=== PATIENT | female | born 1965 | race Caucasian/White ===

== ENCOUNTER 2018-03-22 09:46 | Outpatient (CLI) | payer MEDICAID ==
[~2018-03-22 09:46] MED LIST: ACET-2119 PO; ASPI1TAB2 PO; IRON150C5 PO; LAMO25TA4 PO; MEDR2.5T PO; SERT50TA PO; ZOLP10TA5 PO
== END 2018-03-22 23:59 | disposition home or self-care (01) ==
LOC: RAD 09:46
PROVIDERS: ATTEND Nurse Practitioner Family
DX: R56.9 Unspecified convulsions (principal); I10 Essential (primary) hypertension; Z87.891 Personal history of nicotine dependence; Z88.0 Allergy status to penicillin; Z88.2 Allergy status to sulfonamides
CPT/HCPCS: 95816

== ENCOUNTER 2018-05-27 11:41 | Emergency (ER) | payer MEDICAID ==
[~2018-05-27] VITALS: Ht 167.6 cm; Wt 63.6 kg
[2018-05-27 12:45] LABS: BASOPHILS % (AUTO) 0.7 % (0-1); EOSINOPHILS % (AUTO) 0.6 % (0-6); HEMOGLOBIN 14.8 g/dl (12.0-16.0); LYMPHOCYTES # (AUTO) 1.6 X10'3 (1.1-4.8); LYMPHOCYTES % (AUTO) 31.6 % (21-51); MEAN CORPUSCULAR HEMOGLOBIN 31.3 PG (27.0-31.0); MEAN CORPUSCULAR HGB CONC 33.6 g/dL (33.0-36.5); MEAN PLATELET VOLUME 7.8 FL (7.4-10.4); MONOCYTES # (AUTO) 0.4 X10'3 (0-0.9); MONOCYTES % (AUTO) 8.6 % (2-12); NEUTROPHILS % (AUTO) 58.5 % (42-75); PLATELET COUNT 254 X10'3 (140-440); RED BLOOD COUNT 4.73 X10'6 (4.20-5.60); RED CELL DISTRIBUTION WIDTH 13.1 % (11.5-14.5); WHITE BLOOD COUNT 5.1 X10'3 (4.5-11.0)
[2018-05-27] MEDS ORDERED: TETanus/Pertussis (Acell)/Diphther VAC/PF (Tdap-Adult) 0.5ml syringe IM ONE (12:55)
[2018-05-27] MEDS ORDERED: proCHLORperazine 10mg tablet PO ONE (12:55)
[2018-05-27] MEDS ORDERED: acetaminophen 325mg tablet PO ONE (12:55)
[2018-05-27] MEDS ORDERED: ketorolac trometh inj. 60 MG/2 ML VIAL IM ONE (12:55)
[2018-05-27] MEDS ORDERED: ziprasidone 20mg capsule PO ONE (12:55)
[2018-05-27] MEDS ORDERED: diphenhydrAMINE 25mg capsule PO ONE (12:55)
[2018-05-27 12:59] LABS: ALANINE AMINOTRANSFERASE 15 U/L (12-78); ALBUMIN 4.3 G/DL (3.4-5.0); ALBUMIN/GLOBULIN RATIO 1.2 (1.1-1.5); ALKALINE PHOSPHATASE 35 IU/L (46-116); ANION GAP 8 (8-16); ASPARTATE AMINO TRANSFERASE 12 U/L (10-37); BILIRUBIN,TOTAL 0.4 MG/DL (0.1-1.0); BLOOD UREA NITROGEN 11 MG/DL (7-18); BUN/CREATININE RATIO 15.9 (6.6-38.0); CALCIUM 9.4 MG/DL (8.5-10.1); CHLORIDE 105 MMOL/L (99-107); CREATININE 0.69 MG/DL (0.40-0.90); GLUCOSE 83 MG/DL (70-104); POTASSIUM 3.9 MMOL/L (3.5-5.1); SODIUM 144 MMOL/L (135-145); TOTAL CARBON DIOXIDE 30.6 MMOL/L (24-32); eGFR 89 ML/MIN
[2018-05-27 13:08] LABS: URINE AMPHETAMINE SCREEN NEGATIVE (Neg); URINE BARBITUATE SCREEN NEGATIVE (Neg); URINE BENZODIAZEPINES SCREEN POSITIVE (Neg); URINE CANNABINOID SCREEN POSITIVE (Neg); URINE COCAINE SCREEN NEGATIVE (Neg); URINE METHADONE SCREEN NEGATIVE (Neg); URINE OPIATE SCREEN NEGATIVE (Neg); URINE PHENCYCLIDINE SCREEN NEGATIVE (Neg)
[2018-05-27 13:12] LABS: ETHANOL < 0.010 GM/DL (0.0-0.010)
[2018-05-27] MEDS ORDERED: EST1T PO (13:31)
[2018-05-27] MEDS ORDERED: acetaminophen 325mg tablet PO PRN (13:40)
--- NOTE | 2018-05-27 13:43 | NUR ---
PT WENT TO CT VIA WHEELCHAIR AND NOW BACK IN BED EATING LUNCH.
[2018-05-27] MEDS ORDERED: aspirin/acetaminophen/caffeine tablet PO PRN (13:45)
[2018-05-27 15:58] LABS: CLARITY,URINE CLEAR (Clear); COLOR,URINE STRAW (Yellow); GLUCOSE, URINE NEGATIVE (Neg); KETONES,URINE NEGATIVE (Neg); LEUKOCYTE ESTERASE ,URINE NEGATIVE (Neg); NITRITES, URINE NEGATIVE (Neg); OCCULT BLOOD,URINE NEGATIVE (Neg); PROTEIN,URINE NEGATIVE (Neg); UROBILINOGEN,URINE 0.2 E.U/dL (0.2-1.0)
[2018-05-27 16:02] LABS: UA COLLECTION TYPE CLN CATCH MIDSTREAM
--- NOTE | 2018-05-27 16:19 | NUR ---
Patient awake and alert. Pt c/o feeling overwhelmed. Patient has chronic MARINELLI which is now 2/10 after medication. Pt is awaiting disability. Pt's ex lives with her and she believes he is doing drugs. Patient had agreement that he could live with her as long as he is drug free and goes to rehab. Patient has not gone to rehab yet. Patient tearful. Patient states she broke and did something she shouldn't have. Patient states she is not suicidal and won't try doing something again. Continue to monitor.
--- NOTE | 2018-05-27 20:34 | NUR ---
On asssessment the proposal manager writer notice patient was curled up in a position sleeping. When asked how patient was feeling, pt began to cry. Pt stated she was sad because she was supposed to have tea with her granchilden today. Pt states she has six granchildren. One , not sure of the time frame. Pt also stated she couldn't take it any more leaving with her . "He was supposed to be clean, but when he yells at her like he did, he is usually using."Pt states she couldn't take it anymore and that is when she decided to cut her wrists. Pt was pleasant during 1:1 therapeutic assesment. Pt c/o of headache 04/25. This proposal manager writer administered Excedrin migraine. Pt's mood matches her affect. Pt sleeps most of the time. Addendum: 05/27/18 at 2043 by CLARICE pt was given aspirin/acetaminophin/caffeine 2 tabs.
--- NOTE | 2018-05-27 21:26 | NUR ---
Pt sleeping on right side curled up. RR even and unlabored
--- NOTE | 2018-05-27 22:28 | NUR ---
Pt sleeping on left side. RR even and unlabored.
--- NOTE | 2018-05-27 23:55 | NUR ---
Pt sleeping on left side. RR even and unlabored
--- NOTE | 2018-05-28 01:57 | NUR ---
Pt sleeping, RR even and unlabored.
--- NOTE | 2018-05-28 04:01 | NUR ---
Pt sleeping laying on right side. RR even and unlabored.
--- NOTE | 2018-05-28 05:01 | NUR ---
Pt left side sleeping. RR even and unlabored
--- NOTE | 2018-05-28 06:32 | NUR ---
Patient sleeping on left side. No distress observed. Continue to monitor.
[2018-05-28] MEDS: medroxyprogesterone acet. 2.5mg tablet PO SCH (08:34)
[2018-05-28] MEDS: sertraline 50mg tablet PO SCH (08:34)
[2018-05-28] MEDS: diazepam 5mg tablet PO PRN ×2 (08:55→18:11)
--- NOTE | 2018-05-28 08:59 | NUR ---
Patient tearful and wanting Ativan. Pt takes Valium 10 mg BID PRN AA. Patient gets Valium from [facility] according to the External Med List. Valium given to patient. Continue to monitor.
--- NOTE | 2018-05-28 11:11 | NUR ---
Patient sleeping on right side. No distress observed. Continue to monitor.
--- NOTE | 2018-05-28 13:16 | NUR ---
Patient awoke for breakfast and went back to sleep. No distress observed. Continue to monitor.
--- NOTE | 2018-05-28 15:17 | NUR ---
Patient continues to sleep. No restlessness observed. Continue to monitor.
--- NOTE | 2018-05-28 17:05 | NUR ---
Patient talking on the phone to her daughter and then to her ex-. Patient is crying and upset. RN spoke to patient and patient is very depressed. Patient states her ex has turned her daughter against her. Patient is frustrated and angry. Continue to monitor.
[2018-05-28] MEDS: ibuprofen 200mg tablet PO PRN (18:07)
[2018-05-28] MEDS: acetaminophen 325mg tablet PO PRN (18:08)
--- NOTE | 2018-05-28 19:19 | NUR ---
RN spoke to patient and patient continues to be upset and angry and blames her anger on Valium when RN believes it was the conversation with her daughter and ex. RN attempted to encourage patient but patient does not accept encouragement. Continue to monitor.
[2018-05-28] MEDS: zolpidem 5mg tablet PO PRN (21:16)
--- NOTE | 2018-05-28 22:06 | NUR ---
Patient received sleep medication. Patient is a little restless. Continue to monitor.
--- NOTE | 2018-05-29 00:01 | NUR ---
Note anne-marie in [facility] - 05/29/18 at 0003 by MICHAEL Patient sleeping on right side. No restlessness observed.
--- NOTE | 2018-05-29 00:03 | NUR ---
Patient sitting up in bed. No distress observed. Continue to monitor.
[2018-05-29] MEDS ORDERED: diphenhydrAMINE 50 mg/ml inj IM ONE (02:00)
[2018-05-29] MEDS ORDERED: LORazepam 2 mg/ml vial IV ONE (02:00)
[2018-05-29] MEDS ORDERED: haloperidol lactate 5mg/ml inj IM ONE (02:00)
--- NOTE | 2018-05-29 02:14 | NUR ---
Patient up to the nursing station speaking with the RN, stating that she felt like hitting her head against the wall if her headache did not stop. She was encouraged not to do so, was asked if she wanted something for the headache, but she declined. Patient then went into the [facility], where staff was alerted to a "banging sound". Upon entering the restroom, patient was observed hitting her head against the wall and screaming, had water all over the floor and herself. This RN and another staff member directed patient back to her bed, and attempt to redirect. Continued to scream, and fight staff. Security was called to unit, Charge was informed, ERP was made aware of above, and medications/orders requested as redirection, calming approach, and other modalities were not effective. Orders were rec'd for medications, and were administered by the covering RN. Patient's head was checked for injuries, and none apparent were noted.
--- NOTE | 2018-05-29 02:18 | NUR ---
PT FOUND HITTING HER IN BATHROOM, AFTER BEING LED TO BED, PT BEGAN HITTING HER HEAD WITH HER FISTS. MD NOTIFIED. HALDOL 10 MG, ATIVAN 2MG, AND BENADRYL 50 MG ORDERED IM TO CALM PT SELF HARM BEHAVIORS. PT COOPERATED WITH INJECTIONS X2, WAS MADE COMFORTABLE IN BED AND VITAL SIGNS ARE BEING MONITORED.
--- NOTE | 2018-05-29 03:36 | NUR ---
pt has had 2 episodes of low BP after receiving medication for aggitation. MD aware, no new orders. Will continue to monitor.
--- NOTE | 2018-05-29 04:30 | NUR ---
pt resting, no distress noted. She remains on bedside monitoring equipment.
--- NOTE | 2018-05-29 05:17 | NUR ---
pt sleeping at this time. BP is trending upward with last reading of 100/61 - no distress noted. Will continue to monitor.
--- NOTE | 2018-05-29 09:45 | NUR ---
Recieved report, assumed care. pt. sleeping on right side. pt. on bedside monitor. vitals stable. nad noted.
[2018-05-29] MEDS: sertraline 50mg tablet PO SCH (10:25)
[2018-05-29] MEDS: medroxyprogesterone acet. 2.5mg tablet PO SCH (10:26)
--- NOTE | 2018-05-29 11:37 | NUR ---
Pt. laying on side with eyes closed. vitals stable. NAD noted.
--- NOTE | 2018-05-29 13:05 | NUR ---
call from pt.s , on line for 10 min. pt. calm and quiet while on phone. RN spoke with stated he would come by for a visit later today and was appreciative was getting help.
--- NOTE | 2018-05-29 13:13 | NUR ---
Pt. given meal. up to bathroom and eating at bedside.
--- NOTE | 2018-05-29 13:30 | NUR ---
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 FAXED CHANGE OF MEAL TO DIETARY.
--- NOTE | 2018-05-29 15:59 | NUR ---
pt. laying on right side with eyes closed. nad noted. states she is feeling "better than yesterday".
--- NOTE | 2018-05-29 16:48 | NUR ---
PT.S AT BEDSIDE TALKING QUIETLY.
--- NOTE | 2018-05-29 17:30 | NUR ---
PT. LAYING WITH EYES CLOSED. NAD NOTED
[2018-05-29] MEDS: ibuprofen 200mg tablet PO PRN (20:08)
[2018-05-29] MEDS: zolpidem 5mg tablet PO PRN (20:13)
[2018-05-29] MEDS: acetaminophen 325mg tablet PO PRN (20:16)
[2018-05-30] MEDS: sertraline 50mg tablet PO SCH (08:18)
[2018-05-30] MEDS: medroxyprogesterone acet. 2.5mg tablet PO SCH (08:18)
--- NOTE | 2018-05-30 08:56 | NUR ---
PT WANTS TO USE THE PHONE. GAVE HER THE PHONE
[2018-05-30 11:01] VITALS: BP 108/67
== END 2018-05-30 11:08 | disposition home or self-care (01) ==
LOC: ER 11:42
DX: S61.512A Laceration without foreign body of left wrist, initial encounter (principal); R45.851 Suicidal ideations; R51 Headache; F32.9 Major depressive disorder, single episode, unspecified; G89.29 Other chronic pain; F12.10 Cannabis abuse, uncomplicated; Z88.0 Allergy status to penicillin; Z88.2 Allergy status to sulfonamides; W26.8XXA Contact with other sharp object(s), not elsewhere classified, initial encounter; Y93.89 Activity, other specified; Y92.89 Other specified places as the place of occurrence of the external cause; Y99.8 Other external cause status
CPT/HCPCS: 36415; 70450; 80053; 80305; 80320; 81003; 84443; 85025; 90471; 90715; 96372; 96374; 99285; J1885; Q0163; Q0164

== ENCOUNTER 2018-09-24 16:15 | Emergency (ER) | payer MEDICAID ==
[~2018-09-24] VITALS: Ht 167.6 cm; Wt 56.0 kg
[~2018-09-24 16:15] MED LIST changes: +EST1T PO; -IRON150C5 PO; -LAMO25TA4 PO
[2018-09-24 17:12] LABS: BASOPHILS % (AUTO) 0.6 % (0-1); EOSINOPHILS # (AUTO) 0.1 X10'3 (0-0.9); EOSINOPHILS % (AUTO) 1.6 % (0-6); HEMATOCRIT 40.8 % (35.0-45.0); HEMOGLOBIN 13.8 g/dl (12.0-16.0); LYMPHOCYTES # (AUTO) 1.8 X10'3 (1.1-4.8); LYMPHOCYTES % (AUTO) 30.4 % (21-51); MEAN CORPUSCULAR HEMOGLOBIN 32.2 PG (27.0-31.0); MEAN CORPUSCULAR HGB CONC 33.8 g/dL (33.0-36.5); MEAN CORPUSCULAR VOLUME 95.4 FL (78-98); MONOCYTES # (AUTO) 0.6 X10'3 (0-0.9); MONOCYTES % (AUTO) 9.7 % (2-12); NEUTROPHILS # (AUTO) 3.4 X10'3 (1.8-7.7); NEUTROPHILS % (AUTO) 57.7 % (42-75); PLATELET COUNT 250 X10'3 (140-440); RED BLOOD COUNT 4.27 X10'6 (4.20-5.60); WHITE BLOOD COUNT 5.8 X10'3 (4.5-11.0)
[2018-09-24 17:21] LABS: ALANINE AMINOTRANSFERASE 23 U/L (12-78); ALBUMIN 3.9 G/DL (3.4-5.0); ALBUMIN/GLOBULIN RATIO 1.2 (1.1-1.5); ALKALINE PHOSPHATASE 41 IU/L (46-116); ANION GAP 8 (8-16); ASPARTATE AMINO TRANSFERASE 14 U/L (10-37); BILIRUBIN,TOTAL 0.3 MG/DL (0.1-1.0); BLOOD UREA NITROGEN 12 MG/DL (7-18); BUN/CREATININE RATIO 16.7 (6.6-38.0); CALCIUM 8.9 MG/DL (8.5-10.1); CHLORIDE 105 MMOL/L (99-107); CREATININE 0.72 MG/DL (0.40-0.90); GLUCOSE 93 MG/DL (70-104); POTASSIUM 3.9 MMOL/L (3.5-5.1); SODIUM 141 MMOL/L (135-145); TOTAL CARBON DIOXIDE 28.1 MMOL/L (24-32); TOTAL PROTEIN 7.2 G/DL (6.4-8.2); eGFR 85 ML/MIN
[2018-09-24 18:25] LABS: CLARITY,URINE CLEAR (Clear); COLOR,URINE YELLOW (Yellow); GLUCOSE, URINE NEGATIVE (Neg); KETONES,URINE NEGATIVE (Neg); LEUKOCYTE ESTERASE ,URINE NEGATIVE (Neg); NITRITES, URINE NEGATIVE (Neg); OCCULT BLOOD,URINE NEGATIVE (Neg); PROTEIN,URINE NEGATIVE (Neg); UROBILINOGEN,URINE 0.2 E.U/dL (0.2-1.0)
[2018-09-24 18:26] LABS: URINE HCG NEGATIVE (NEG)
[2018-09-24 18:28] LABS: UA COLLECTION TYPE CLN CATCH MIDSTREAM
[2018-09-24] MEDS ORDERED: ketorolac tromethamine 15mg/ml inj. IM ONE (19:00)
[2018-09-24] MEDS ORDERED: CEPH500C5 PO (19:28)
[2018-09-24] MEDS ORDERED: PHEN-824 PO (19:28)
[2018-09-24 19:59] VITALS: BP 109/75
== END 2018-09-24 20:01 | disposition home or self-care (01) ==
LOC: ER 16:15
DX: R10.9 Unspecified abdominal pain (principal); R30.0 Dysuria; R11.0 Nausea; R33.9 Retention of urine, unspecified; G89.29 Other chronic pain; F32.9 Major depressive disorder, single episode, unspecified; F12.90 Cannabis use, unspecified, uncomplicated; Z98.890 Other specified postprocedural states; Z87.891 Personal history of nicotine dependence; Z88.0 Allergy status to penicillin; Z88.2 Allergy status to sulfonamides; Z79.899 Other long term (current) drug therapy
CPT/HCPCS: 36415; 80053; 81003; 81025; 85025; 85610; 96372; 99284; J1885

== ENCOUNTER 2018-10-06 12:18 | Emergency (ER) | payer MEDICAID ==
[~2018-10-06] VITALS: Ht 163.8 cm; Wt 61.0 kg
[~2018-10-06 12:18] MED LIST changes: +CEPH500C5 PO; +PHEN-824 PO
[2018-10-06 12:28] VITALS: BP 110/66
[2018-10-06] MEDS ORDERED: LIDOcaine 5% patch TP STA (13:38)
[2018-10-06] MEDS ORDERED: ketorolac tromethamine 15mg/ml inj. IM ONE (13:40)
[2018-10-06] MEDS ORDERED: LIDO700A32 TOP (16:11)
== END 2018-10-06 16:24 | disposition home or self-care (01) ==
LOC: ER 12:18
DX: M53.3 Sacrococcygeal disorders, not elsewhere classified (principal); M54.5 Low back pain; G89.29 Other chronic pain; F32.9 Major depressive disorder, single episode, unspecified; F12.90 Cannabis use, unspecified, uncomplicated; Z98.890 Other specified postprocedural states; Z88.0 Allergy status to penicillin; Z88.2 Allergy status to sulfonamides; Z79.899 Other long term (current) drug therapy; Z79.82 Long term (current) use of aspirin
CPT/HCPCS: 72192; 72220; 96372; 99284; J1885

== ENCOUNTER 2018-11-13 20:10 | Emergency (ER) | payer MEDICAID ==
[~2018-11-13] VITALS: Ht 167.6 cm; Wt 61.4 kg
[~2018-11-13 20:10] MED LIST changes: -CEPH500C5 PO; +LIDO700A32 TOP; +LIDOcaine 1% W/epiNEPHrine 1:100,000 20ml vial ONE
[2018-11-13 20:12] VITALS: BP 118/68
[2018-11-13] MEDS ORDERED: TETanus/Pertussis (Acell)/Diphther VAC/PF (Tdap-Adult) 0.5ml syringe IM ONE (20:35)
== END 2018-11-13 22:29 | disposition home or self-care (01) ==
LOC: ER 20:11
DX: S91.312A Laceration without foreign body, left foot, initial encounter (principal); G89.29 Other chronic pain; F32.9 Major depressive disorder, single episode, unspecified; F12.90 Cannabis use, unspecified, uncomplicated; Z98.890 Other specified postprocedural states; Z88.0 Allergy status to penicillin; Z88.2 Allergy status to sulfonamides; Z79.899 Other long term (current) drug therapy; W01.118A Fall on same level from slipping, tripping and stumbling with subsequent striking against other sharp object, initial encounter; Y93.89 Activity, other specified; Y92.89 Other specified places as the place of occurrence of the external cause; Y99.8 Other external cause status
CPT/HCPCS: 12001; 73630; 90471; 99284

== ENCOUNTER 2019-02-14 13:25 | Emergency (ER) | payer MEDICAID ==
[~2019-02-14] VITALS: Ht 167.6 cm; Wt 61.4 kg
[~2019-02-14 13:25] MED LIST changes: -LIDOcaine 1% W/epiNEPHrine 1:100,000 20ml vial ONE
[2019-02-14] MEDS ORDERED: morphine 4 MG/ML inj SYRINge IV PRN (14:20)
[2019-02-14] MEDS ORDERED: normal saline 1000ML IV soln IVB ONE (14:20)
[2019-02-14] MEDS ORDERED: ondansetron/PF 4mg/2ml inj IV ONE (14:20)
[2019-02-14 14:55] LABS: BASOPHILS % (AUTO) 0.3 % (0-1); EOSINOPHILS % (AUTO) 0.3 % (0-6); HEMOGLOBIN 13.7 g/dl (12.0-16.0); LYMPHOCYTES # (AUTO) 1.7 X10'3 (1.1-4.8); LYMPHOCYTES % (AUTO) 22.2 % (21-51); MEAN CORPUSCULAR HEMOGLOBIN 31.2 PG (27.0-31.0); MEAN CORPUSCULAR HGB CONC 33.3 g/dL (33.0-36.5); MEAN CORPUSCULAR VOLUME 93.6 FL (78-98); MEAN PLATELET VOLUME 8.2 FL (7.4-10.4); MONOCYTES # (AUTO) 0.6 X10'3 (0-0.9); MONOCYTES % (AUTO) 7.5 % (2-12); NEUTROPHILS # (AUTO) 5.2 X10'3 (1.8-7.7); NEUTROPHILS % (AUTO) 69.7 % (42-75); PLATELET COUNT 238 X10'3 (140-440); RED BLOOD COUNT 4.38 X10'6 (4.20-5.60); RED CELL DISTRIBUTION WIDTH 12.9 % (11.5-14.5); WHITE BLOOD COUNT 7.5 X10'3 (4.5-11.0)
[2019-02-14 15:12] LABS: ALANINE AMINOTRANSFERASE 22 U/L (12-78); ALBUMIN 3.5 G/DL (3.4-5.0); ALKALINE PHOSPHATASE 29 IU/L (46-116); ANION GAP 10 (8-16); ASPARTATE AMINO TRANSFERASE 15 U/L (10-37); BILIRUBIN,TOTAL 0.4 MG/DL (0.1-1.0); BLOOD UREA NITROGEN 7 MG/DL (7-18); BUN/CREATININE RATIO 10.1 (6.6-38.0); CHLORIDE 108 MMOL/L (99-107); CREATININE 0.69 MG/DL (0.40-0.90); GLUCOSE 83 MG/DL (70-104); LIPASE 65 U/L (73-393); POTASSIUM 3.8 MMOL/L (3.5-5.1); SODIUM 146 MMOL/L (135-145); TOTAL CARBON DIOXIDE 28.3 MMOL/L (24-32); TOTAL PROTEIN 6.9 G/DL (6.4-8.2); eGFR 89 ML/MIN
[2019-02-14] MEDS ORDERED: HYDR-3965 PO (15:26)
[2019-02-14 15:53] VITALS: BP 110/60
== END 2019-02-14 16:21 | disposition home or self-care (01) ==
LOC: ER 13:25
DX: R91.1 Solitary pulmonary nodule (principal); R10.12 Left upper quadrant pain; G89.29 Other chronic pain; F32.9 Major depressive disorder, single episode, unspecified; F12.90 Cannabis use, unspecified, uncomplicated; Z98.890 Other specified postprocedural states; Z88.0 Allergy status to penicillin; Z88.2 Allergy status to sulfonamides; Z79.82 Long term (current) use of aspirin; Z79.899 Other long term (current) drug therapy
CPT/HCPCS: 36415; 74176; 80053; 83690; 85025; 96374; 96375; 99284; J2270; J2405; J7030

== ENCOUNTER 2019-02-20 13:41 | Emergency (ER) | payer MEDICAID ==
[~2019-02-20] VITALS: Ht 167.6 cm; Wt 65.0 kg
[~2019-02-20 13:41] MED LIST changes: +HYDR-3965 PO
[2019-02-20] MEDS ORDERED: LORazepam 2 mg/ml vial IV ONE (15:00)
[2019-02-20] MEDS ORDERED: morphine 4 MG/ML inj SYRINge IV ONE (15:00)
[2019-02-20] MEDS ORDERED: pantoprazole 40 MG vial IV ONE (15:00)
[2019-02-20] MEDS ORDERED: ketorolac tromethamine 15mg/ml inj. IV ONE (15:00)
[2019-02-20 15:39] LABS: BASOPHILS # (AUTO) 0.1 X10'3 (0-0.2); BASOPHILS % (AUTO) 0.6 % (0-1); EOSINOPHILS # (AUTO) 0.1 X10'3 (0-0.9); EOSINOPHILS % (AUTO) 0.7 % (0-6); HEMATOCRIT 42.4 % (35.0-45.0); HEMOGLOBIN 14.4 g/dl (12.0-16.0); LYMPHOCYTES # (AUTO) 2.1 X10'3 (1.1-4.8); LYMPHOCYTES % (AUTO) 25.8 % (21-51); MEAN CORPUSCULAR HEMOGLOBIN 31.1 PG (27.0-31.0); MEAN CORPUSCULAR VOLUME 91.7 FL (78-98); MONOCYTES # (AUTO) 0.6 X10'3 (0-0.9); MONOCYTES % (AUTO) 7.8 % (2-12); NEUTROPHILS # (AUTO) 5.3 X10'3 (1.8-7.7); NEUTROPHILS % (AUTO) 65.1 % (42-75); PLATELET COUNT 305 X10'3 (140-440); RED BLOOD COUNT 4.62 X10'6 (4.20-5.60); RED CELL DISTRIBUTION WIDTH 12.5 % (11.5-14.5); WHITE BLOOD COUNT 8.2 X10'3 (4.5-11.0)
[2019-02-20 15:54] LABS: ALANINE AMINOTRANSFERASE 19 U/L (12-78); ALBUMIN 3.9 G/DL (3.4-5.0); ALBUMIN/GLOBULIN RATIO 1.1 (1.1-1.5); ALKALINE PHOSPHATASE 33 IU/L (46-116); ANION GAP 6 (8-16); ASPARTATE AMINO TRANSFERASE 14 U/L (10-37); BILIRUBIN,TOTAL 0.3 MG/DL (0.1-1.0); BLOOD UREA NITROGEN 9 MG/DL (7-18); BUN/CREATININE RATIO 14.5 (6.6-38.0); CALCIUM 9.3 MG/DL (8.5-10.1); CHLORIDE 106 MMOL/L (99-107); CREATININE 0.62 MG/DL (0.40-0.90); GLUCOSE 90 MG/DL (70-104); POTASSIUM 4.2 MMOL/L (3.5-5.1); SODIUM 142 MMOL/L (135-145); TOTAL CARBON DIOXIDE 29.9 MMOL/L (24-32); TOTAL PROTEIN 7.6 G/DL (6.4-8.2); eGFR > 90 ML/MIN
[2019-02-20 16:37] VITALS: BP 95/60
== END 2019-02-20 16:13 | disposition home or self-care (01) ==
LOC: ER 13:41
DX: R07.89 Other chest pain (principal); R10.12 Left upper quadrant pain; G89.29 Other chronic pain; F32.9 Major depressive disorder, single episode, unspecified; F12.90 Cannabis use, unspecified, uncomplicated; Z98.890 Other specified postprocedural states; Z88.0 Allergy status to penicillin; Z88.2 Allergy status to sulfonamides; Z79.82 Long term (current) use of aspirin; Z79.899 Other long term (current) drug therapy
CPT/HCPCS: 36415; 71046; 80053; 85025; 96374; 96375; 99284; C9113; J1885; J2060; J2270

== ENCOUNTER 2019-08-27 17:17 | Emergency (ER) | payer MEDICAID ==
[~2019-08-27] VITALS: Ht 162.6 cm; Wt 59.0 kg
[~2019-08-27 17:17] MED LIST changes: -HYDR-3965 PO
[2019-08-27 17:23] VITALS: BP 127/64
== END 2019-08-27 18:30 | disposition home or self-care (01) ==
LOC: ER 17:19
DX: H33.22 Serous retinal detachment, left eye (principal); G89.29 Other chronic pain; F32.9 Major depressive disorder, single episode, unspecified; F12.90 Cannabis use, unspecified, uncomplicated; Z98.890 Other specified postprocedural states; Z88.0 Allergy status to penicillin; Z88.2 Allergy status to sulfonamides; Z79.899 Other long term (current) drug therapy
CPT/HCPCS: 99282

== ENCOUNTER 2020-03-19 20:13 | Emergency (ER) | payer MEDICAID ==
[~2020-03-19] VITALS: Ht 162.6 cm; Wt 52.3 kg
--- NOTE | 2020-03-19 21:55 | NUR ---
Pt. seen, evaluated, and place ready for discharge by MD before full nursing assessment.
[2020-03-19 21:56] VITALS: BP 116/77
== END 2020-03-19 21:53 | disposition home or self-care (01) ==
LOC: ER 20:13
DX: R04.0 Epistaxis (principal); G89.29 Other chronic pain; N18.9 Chronic kidney disease, unspecified; F12.90 Cannabis use, unspecified, uncomplicated; Z86.16 Personal history of COVID-19; Z98.890 Other specified postprocedural states; Z90.5 Acquired absence of kidney; Z88.0 Allergy status to penicillin; Z88.2 Allergy status to sulfonamides; Z79.899 Other long term (current) drug therapy
CPT/HCPCS: 99281; 99283

== ENCOUNTER 2020-03-22 06:34 | Day surgery (SDC) | payer MEDICAID ==
[~2020-03-22] VITALS: Ht 162.6 cm; Wt 52.3 kg
[2020-03-22] MEDS ORDERED: normal saline 1000ml 1,000 ML IV SCH (06:55)
[2020-03-22 07:00] VITALS: BP 156/90
--- NOTE | 2020-03-22 07:00 | NUR ---
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 Addendum: 03/22/20 at 1046 by Carolina Jenkins RN Amended: Links added.
[2020-03-22] MEDS ORDERED: iohexol 300 MG/1 ML 50ml polymer ONE (08:23)
[2020-03-22 09:14] VITALS: BP 87/57
[2020-03-22 09:30] VITALS: BP 91/62
[2020-03-22 09:45] VITALS: BP 101/74
== END 2020-03-22 10:15 | disposition home or self-care (01) ==
LOC: SSTAY O 06:34 → EDSTATUS 08:30 → SSTAY O 10:15
PROVIDERS: ATTEND Radiology Vascular & Interventional Radiology
DX: N13.1 Hydronephrosis with ureteral stricture, not elsewhere classified (principal); M19.90 Unspecified osteoarthritis, unspecified site; Z88.0 Allergy status to penicillin; Z88.2 Allergy status to sulfonamides; Z98.890 Other specified postprocedural states; Z98.1 Arthrodesis status; Z79.899 Other long term (current) drug therapy; Z87.440 Personal history of urinary (tract) infections; Z87.891 Personal history of nicotine dependence
CPT/HCPCS: 50431; Q9967; 74425

== ENCOUNTER 2021-11-25 13:11 | Emergency (ER) | payer MEDICARE, MEDICAID ==
[~2021-11-25] VITALS: Ht 167.6 cm; Wt 59.1 kg
[2021-11-25 13:44] VITALS: BP 106/67
[2021-11-25] MEDS ORDERED: bacitracin 15gm ointment TP ONE (15:30)
== END 2021-11-25 16:18 | disposition home or self-care (01) ==
LOC: ER 13:12
DX: T24.021D Burn of unspecified degree of right knee, subsequent encounter (principal); N18.9 Chronic kidney disease, unspecified; G89.29 Other chronic pain; F32.A Depression, unspecified; F12.90 Cannabis use, unspecified, uncomplicated; Z88.0 Allergy status to penicillin; Z87.440 Personal history of urinary (tract) infections; Z98.890 Other specified postprocedural states; Z88.2 Allergy status to sulfonamides; Z79.899 Other long term (current) drug therapy; X08.8XXD Exposure to other specified smoke, fire and flames, subsequent encounter
CPT/HCPCS: 99282